=== PATIENT | male | born 1955 | race African-American/Black ===

== ENCOUNTER 2016-10-08 18:55 | Emergency (ER) | payer BC, OTHER ==
[~2016-10-08] VITALS: Ht 190.5 cm; Wt 108.4 kg
[~2016-10-08 18:55] MED LIST: DOXYCYCLINE 10100 MG PO; HYDROCODONE-AP1 EAC6 PO; NOHOMEMEDICATIONS
[2016-10-08] MEDS ORDERED: CARAFATE 1 GM TA1 G1 PO (19:27)
[2016-10-08] MEDS ORDERED: PROTONIX40 M1 PO (19:27)
[2016-10-08 19:40] LABS: ABSOLUTE NEUTROPHILS 5.3 thou/uL (1.4-8.2); BASOPHILS 1.4 % (0.0-2.0); EOSINOPHILS 2.4 % (0.0-3.0); HEMATOCRIT 49.7 % (42.0-52.0); HEMOGLOBIN 17.1 gm/dL (14.0-18.0); LYMPHOCYTES 33.6 % (24.0-44.0); MCH 27.4 pg (26.0-34.0); MCHC 34.3 g/dL (28.0-37.0); PLATELET COUNT 228 thou/uL (150-400); POLYS 57.6 % (36.0-66.0); RBC 6.22 mil/uL (4.50-6.00); RDW 14.9 % (10.5-14.5); WBC 9.1 thou/uL (4.0-11.0)
[2016-10-08 19:41] LABS: MANUAL DIFF NO
[2016-10-08 19:55] LABS: CALCIUM 9.6 mg/dL (8.5-10.1); CREATININE 1.5 mg/dL (0.7-1.3)
[2016-10-08 19:59] LABS: ALBUMIN 4.5 g/dL (3.4-5.0)
[2016-10-08 23:27] VITALS: BP 138/84
== END 2016-10-08 23:30 | disposition home or self-care (01) ==
LOC: ER 18:55
PROVIDERS: Emergency Medicine
DX: R10.13 Epigastric pain (principal); E11.9 Type 2 diabetes mellitus without complications; Z90.49 Acquired absence of other specified parts of digestive tract; Z98.890 Other specified postprocedural states; Z88.5 Allergy status to narcotic agent